=== PATIENT | male | born 1945 | race Caucasian/White ===

== ENCOUNTER 2018-10-23 11:32 | Day surgery (SDC) | payer MEDICARE ==
[~2018-10-23] VITALS: Ht 180.3 cm; Wt 89.5 kg
[~2018-10-23 11:32] MED LIST: AMLO5 PO; ATOR40TA PO; ELIQUIS5 MG PO; FINA5 PO; LOSA25 PO; METO50 PO; Omeprazole20 M1 PO; PARO20 PO; Zantac150 MG PO
== END 2018-10-23 14:05 | disposition home or self-care (01) ==
LOC: ORSCSDS 11:32
PROVIDERS: Surgery
PROC: 0YU50JZ Supplement Right Inguinal Region with Synthetic Substitute, Open Approach (ICD-10-PCS; principal; 2018-10-23 13:00)
DX: K40.90 Unilateral inguinal hernia, without obstruction or gangrene, not specified as recurrent (principal); I10 Essential (primary) hypertension; I48.0 Paroxysmal atrial fibrillation; Z79.01 Long term (current) use of anticoagulants; E78.00 Pure hypercholesterolemia, unspecified; F32.9 Major depressive disorder, single episode, unspecified; Z79.899 Other long term (current) drug therapy
CPT/HCPCS: 88305; J2704; J7120

== ENCOUNTER 2018-10-28 06:54 | Day surgery (SDC) | payer MEDICARE ==
[~2018-10-28] VITALS: Ht 180.3 cm; Wt 90.8 kg
--- NOTE | 2018-10-28 08:53 | NUR ---
Ambulatory in Day Surgery History, Chart, Medications and Allergies reviewed before start of procedure. Patient confirms NPO status and agrees with scheduled surgery. Pre-Op teaching done. Pt verbalizes understanding. Patient States Post-Procedure ride home has been arranged.
--- NOTE | 2018-10-28 10:22 | NUR ---
DRESSING TO R GROIN CDI. PT SITTING UP IN BED EATING JELLO. AT BEDSIDE. PROVIDED PAIN MEDS. WARM BLANKETS PROVIDED. WENDY WATER WITH MEDS.
--- NOTE | 2018-10-28 11:04 | NUR ---
Patient up to Ambulate independently. Gait steady. Patient States Post-Procedure ride home has been arranged. Discharged via wheelchair to private car for ride home. ALL BELONGIGNS RETURNED TO PATIENT.
== END 2018-10-28 23:19 | disposition home or self-care (01) ==
LOC: ORSCMMR 06:54 → ORD 08:15 → ORSCMMR 08:15
PROVIDERS: Surgery
PROC: 0YU50JZ Supplement Right Inguinal Region with Synthetic Substitute, Open Approach (ICD-10-PCS; principal; 2018-10-28 08:15)
DX: K40.90 Unilateral inguinal hernia, without obstruction or gangrene, not specified as recurrent (principal); I10 Essential (primary) hypertension; I48.0 Paroxysmal atrial fibrillation; Z79.01 Long term (current) use of anticoagulants; E78.00 Pure hypercholesterolemia, unspecified; F32.9 Major depressive disorder, single episode, unspecified; Z79.899 Other long term (current) drug therapy
CPT/HCPCS: C1781; J0690; J1100; J1885; J2250; J2405; J2704; J3010; J7120

== ENCOUNTER 2020-03-15 11:00 | Day surgery (SDC) | payer MEDICARE ==
[~2020-03-15] VITALS: Ht 180.3 cm; Wt 91.0 kg
--- NOTE | 2020-03-15 15:20 | NUR ---
History, Chart, Medications and Allergies reviewed before start of procedure.Patient confirms NPO status and agrees with scheduled surgery. Surgical site prepped with 2% Chlorhexidine cloth wipe. Patient reports completing Chlorhexadine shower X2 prior to admission to hospital.NOSIN NASAL SWAB DONE.
--- NOTE | 2020-03-15 19:30 | NUR ---
SHIFT SUMMARY POD0 FOR L TKA WITH DR. ROCA. AOX4. PT HAD A SPINAL, ARRIVED WITH NUMBNESS ON BILATERAL LOW EXTREMITIES. UNABLE TO WIGGLE TOES. PT IS ON RA, SPO2 97%. VSS. PT WAS HYPOTENSIVE IN PACU PER LINNEA. HE HAD A 500 BOLUS. BLADDER SCANNED WITH 3ML IN PACU. MAY NEED TO BLADDER SCAN PATIENT TONIGHT TO MONITOR RETENTION. HX BPH AND SLEEP APNEA. PT STS HE CAN SLEEP W/O CPAP WITH NO PROBLEM. PT TOLERATING PO INTAKE DENIES NAUSEA AND VOMITING.RADIAL AND PEDAL PULSES ARE STRONG AND PALPABLE. UPON ASSESSMENT THE POLAR PACK WAS LEAKING WATER. LLE WAS SOAKED. MIKEY BALDWIN CHANGED LEFT KNEE DRESSING. PT DENIES PAIN, WILL CONTINUE TO MANAGE PAIN WITH MEDS ORDERED BY MD. MOORE OF AFIB. BUT NO PROBLEMS DURING SURGERY PER LINNEA FROM PACU. HR AT 112. TXA WERE ADMINSTERED BY MIKEY BALDWIN.
--- NOTE | 2020-03-15 19:42 | NUR ---
BAY CHANGED TO START TOMORROW MORNING PER MACARIO LOMBARDI.
[2020-03-16 04:30] LABS: BASOPHILS ABSOLUTE AUTO 0.02 K/mm3 (0.00-0.23); BASOPHILS PERCENT AUTO 0 % (0-2); EOSINOPHILS ABSOLUTE AUTO 0.17 K/mm3 (0.00-0.68); EOSINOPHILS PERCENT AUTO 2 % (0-6); Hematocrit 38.1 % (37.0-53.0); Hemoglobin 12.4 g/dL (13.5-17.5); IMMATURE GRAN ABSOLUTE AUTO 0.02 K/mm3 (0.00-0.10); IMMATURE GRAN PERCENT AUTO 0 % (0-1); LYMPHOCYTES ABSOLUTE AUTO 1.37 K/mm3 (0.84-5.20); LYMPHOCYTES PERCENT AUTO 18 % (21-46); MONOCYTES PERCENT AUTO 11 % (4-13); Mean Corpuscular HGB 29.8 pg (26.0-34.0); Mean Corpuscular HGB Conc 32.5 g/dL (31.5-36.5); Mean Corpuscular Volume 92 fL (80-100); NEUTROPHILS ABSOLUTE AUTO 5.23 K/mm3 (1.96-9.15); NEUTROPHILS PERCENT AUTO 69 % (41-73); Platelet Count 120 K/mm3 (150-400); RDW Coefficient Variation 12.3 % (11.7-14.2); RDW Standard Deviation 41.7 fL (35.1-46.3); Red Blood Cell Count 4.16 M/mm3 (4.30-5.90); White Blood Cell Count 7.61 K/mm3 (4.00-11.30)
[2020-03-16 04:43] LABS: Anion Gap 5 mmol/L (6-16); Blood Urea Nitrogen 19 mg/dL (8-24); Bun/Creatinine Ratio 20.7 (12.0-20.0); CO2, Blood 29 mmol/L (21-32); Calcium, Blood 7.9 mg/dL (8.5-10.1); Chloride, Blood 109 mmol/L (98-108); Creatinine, Blood 0.92 mg/dL (0.60-1.20); Glomerular Filtration Rate >60 (60-); Glucose, Blood 88 mg/dL (70-99); Potassium, Blood 3.9 mmol/L (3.5-5.5); Sodium, Blood 143 mmol/L (136-145)
--- NOTE | 2020-03-16 05:54 | NUR ---
SHIFT SUMMARY: PT POD#1 FOR LEFT TKA. VICKIE WRAP AND AQUACEL C/D/I WITH POLAR PACK IN PLACE. PAIN BEING MANAGED WITH SCHEDULED TORADOL AND TYLENOL. PT MEDICATED WITH 5MG OXY ONCE. PT RATING PAIN 1/10. AMBULATING HALLWAY AND TO THE BATHROOM. UNSTEADY AT TIMES. PT ONLY ABLE TO VOID TWICE. TOTAL URINE OUTPUT OF 300CC. URINE DARK YELLOW. FLUIDS INFUSING PER EMAR. PT WENDY PO. DENIES N/V. PLAN FOR PHYSICAL THERAPY AND POSSIBLE DISCHARGE TODAY.
[2020-03-16] MEDS ORDERED: Percocet 5-3251 EACH PO (10:03)
--- NOTE | 2020-03-16 11:40 | NUR ---
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 DC INSTRUCTIONS PROVIDED. PT REP UNDERSTANDING THOSE INSTRUCTIONS INCLUDING FU WITH SURGEON, OK TO SHOWER, NO TUB/JACUZZI, SHORT FREQUENT AMBULATION W/FWW, PHYSICAL THERAPY W/HOME EXERCISES RECOMMENDED, PAIN MANAGEMENT DISCUSSION. IV DC'D.
== END 2020-03-16 11:12 | disposition home or self-care (01) ==
LOC: ORSCMMR 11:00 → ORD 12:15 → SURS 18:06 → ORSCMMR 03-16 11:12
PROVIDERS: Orthopaedic Surgery
PROC: 0SRD0JA Replacement of Left Knee Joint with Synthetic Substitute, Uncemented, Open Approach (ICD-10-PCS; principal; 2020-03-15 15:15)
DX: M17.12 Unilateral primary osteoarthritis, left knee (principal); I10 Essential (primary) hypertension; I48.91 Unspecified atrial fibrillation; Z79.01 Long term (current) use of anticoagulants; G47.33 Obstructive sleep apnea (adult) (pediatric); Z79.899 Other long term (current) drug therapy
CPT/HCPCS: 36415; 73560-LT; 80048; 85025; 88300; 97110; 97116; 97162; A9270; A9270-GY; C1776; J0171; J0690; J0735; J1885; J2250; J2370; J2704; J2795; J3010; J7120

== ENCOUNTER 2021-03-21 06:47 | Day surgery (SDC) | payer MEDICARE, BC ==
[~2021-03-21] VITALS: Ht 175.3 cm; Wt 95.9 kg
[~2021-03-21 06:47] MED LIST changes: +Percocet 5-3251 EACH PO
--- NOTE | 2021-03-21 12:17 | NUR ---
Patient up to Ambulate independently. Gait steady. Discharge instructions reviewed with patient. Patient verbalizes understanding. Copy given to patient to take home. Discharged via wheelchair to private car for ride home.
== END 2021-03-21 12:16 | disposition home or self-care (01) ==
LOC: ORSCMMR 06:47 → ORD 08:30 → ORSCMMR 08:30
PROVIDERS: Surgery
PROC: 0YU60JZ Supplement Left Inguinal Region with Synthetic Substitute, Open Approach (ICD-10-PCS; principal; 2021-03-21 08:30)
DX: K40.90 Unilateral inguinal hernia, without obstruction or gangrene, not specified as recurrent (principal); I48.91 Unspecified atrial fibrillation; Z79.01 Long term (current) use of anticoagulants; I10 Essential (primary) hypertension; G47.33 Obstructive sleep apnea (adult) (pediatric); F41.8 Other specified anxiety disorders; Z79.899 Other long term (current) drug therapy
CPT/HCPCS: A9270; C1781; J0690; J1100; J1885; J2370; J2405; J2704; J3010; J7120

== ENCOUNTER 2021-04-01 13:55 | Observation (INO) | payer MEDICARE, BC ==
[~2021-04-01] VITALS: Ht 177.8 cm; Wt 98.1 kg
[2021-04-01 14:41] LABS: BASOPHILS ABSOLUTE AUTO 0.02 K/mm3 (0.00-0.23); BASOPHILS PERCENT AUTO 0 % (0-2); EOSINOPHILS ABSOLUTE AUTO 0.21 K/mm3 (0.00-0.68); EOSINOPHILS PERCENT AUTO 3 % (0-6); Hematocrit 45.5 % (37.0-53.0); Hemoglobin 15.1 g/dL (13.5-17.5); IMMATURE GRAN ABSOLUTE AUTO 0.03 K/mm3 (0.00-0.10); IMMATURE GRAN PERCENT AUTO 0 % (0-1); LYMPHOCYTES ABSOLUTE AUTO 1.39 K/mm3 (0.84-5.20); LYMPHOCYTES PERCENT AUTO 19 % (21-46); MONOCYTES ABSOLUTE AUTO 0.68 K/mm3 (0.16-1.47); MONOCYTES PERCENT AUTO 9 % (4-13); Mean Corpuscular HGB 29.7 pg (26.0-34.0); Mean Corpuscular HGB Conc 33.2 g/dL (31.5-36.5); Mean Corpuscular Volume 90 fL (80-100); Mean Platelet Volume 9.7 fL (9.1-12.4); NEUTROPHILS ABSOLUTE AUTO 5.02 K/mm3 (1.96-9.15); NEUTROPHILS PERCENT AUTO 68 % (41-73); Platelet Count 179 K/mm3 (150-400); RDW Coefficient Variation 12.8 % (11.7-14.2); RDW Standard Deviation 42.1 fL (35.1-46.3); Red Blood Cell Count 5.08 M/mm3 (4.30-5.90); White Blood Cell Count 7.35 K/mm3 (4.00-11.30)
[2021-04-01 15:36] LABS: Alanine Aminotransfer (ALT/SGP 19 U/L (12-78); Albumin, Blood 3.3 g/dL (3.4-5.0); Albumin/Globulin Ratio 0.8 (0.8-1.8); Alk Phos 132 U/L (50-136); Anion Gap 4 mmol/L (6-16); Aspartate Aminotrans (AST/SGOT 17 U/L (12-37); Bilirubin, Total 0.9 mg/dL (0.1-1.0); Blood Urea Nitrogen 11 mg/dL (8-24); Bun/Creatinine Ratio 12.6 (12.0-20.0); CO2, Blood 29 mmol/L (21-32); Calcium, Blood 8.6 mg/dL (8.5-10.1); Chloride, Blood 109 mmol/L (98-108); Creatinine, Blood 0.87 mg/dL (0.60-1.20); Globulin, Blood 3.9 g/dL (2.2-4.0); Glomerular Filtration Rate >60 (60-); Glucose, Blood 98 mg/dL (70-99); Potassium, Blood 3.9 mmol/L (3.5-5.5); Sodium, Blood 142 mmol/L (136-145); Total Protein, Blood 7.2 g/dL (6.4-8.2)
[2021-04-01 19:17] LABS: SARS-Cov-2 (COVID-19) PCR, MMC NEGATIVE (NEGATIVE)
[2021-04-01 20:46] LABS: Hematocrit 39.1 % (37.0-53.0); Hemoglobin 12.7 g/dL (13.5-17.5)
[2021-04-02 01:13] LABS: Hematocrit 36.8 % (37.0-53.0); Hemoglobin 11.7 g/dL (13.5-17.5); Mean Corpuscular HGB 29.3 pg (26.0-34.0); Mean Corpuscular HGB Conc 31.8 g/dL (31.5-36.5); Mean Corpuscular Volume 92 fL (80-100); Mean Platelet Volume 9.8 fL (9.1-12.4); Platelet Count 135 K/mm3 (150-400); RDW Coefficient Variation 12.9 % (11.7-14.2); RDW Standard Deviation 43.5 fL (35.1-46.3); Red Blood Cell Count 3.99 M/mm3 (4.30-5.90); White Blood Cell Count 8.23 K/mm3 (4.00-11.30)
--- NOTE | 2021-04-02 08:28 | NUR ---
SUMMARY PT VSS AND LABS STABILIZING. PT RECEIVED NORCO X1 DURING NOC AND SUBLIMAZE THIS AM.DR ORNELAS THIS AM REVIEWED LAABS AND SAW PT.ORDERS RECEIVED FOR REG DIET
--- NOTE | 2021-04-02 14:09 | NUR ---
SHIFT SUMMARY: ALERT AND ORIENTED. PLEASANT AFFECT WITH VERY MINIMAL ANXIETY. REPORTS THAT PAIN IS UNDER CONTROL WITH i NORCO PO Q [address]AP IN PL[address] FOR SUPPORT AND ICE BAG FOR GROIN AREA PT. REQUEST. APPETITE IS GOOD AND PT. VOIDING WITHOUT DIFFICULTY. UP TO AMBULATE IN DONG WITH CONTACT GUARD/STAND-BY ASSIST. PATIENT TOLERATE WELL BUT "FEELS A LITTLE WEAK". NO INCREASED SWELLING AT LEFT GROIN SITE AREA. CALL LIGHT IN REACH AND PT. ENCOURAGED TO CALL FOR ANY NEEDS, CONCERNS, COMPLAINTS.
--- NOTE | 2021-04-02 17:20 | NUR ---
AT 1600 ASSESSED PT. PAIN AND PATIENT STATES "ITS ACTUALLY A ZERO RIGHT NOW". AT THIS TIME IS SLEEPING WITH NO S/S DISTRESS, CALL LIGHT IN REACH.
--- NOTE | 2021-04-03 04:07 | NUR ---
PT C/O INCREASED PAIN.FREIGHT CLERK MEDICATED PT WITH PO NORCO.I FOLLOWED UP WITH PT WHO STATED HE CALLED FOR BRP AND DID NOT WAIT FOR ASSIST.REMOVED HIS PAS AND GOT SELF OOB FOR BRP.STATES SUDDEN INCREASE OF PAIN.PT HAS INCREASE IN FIRMNESS TO GROIN AND PUBIC AREA SPREADING ACROSS L TO R SIMILAR TO APPEARANCE LAST NIGHT.ICE CONTINUOUS TO AREA.0428 PT MED WITH DILAUDID FOR PAIN PER HIS REQUEST.0515 PTS PAIN INITIALY DROPPED TO 7 AFTER DILAUDID, HOWEVER, HE NOW STATES PAIN HAS INCLINED TO LEVEL 10.MESSAGE TO DR CAMARA FOR RETURNED CALL.
[2021-04-03 04:11] LABS: Hematocrit 37.2 % (37.0-53.0); Mean Corpuscular HGB 29.6 pg (26.0-34.0); Mean Corpuscular HGB Conc 32.3 g/dL (31.5-36.5); Mean Corpuscular Volume 92 fL (80-100); Mean Platelet Volume 9.9 fL (9.1-12.4); Platelet Count 158 K/mm3 (150-400); RDW Standard Deviation 43.4 fL (35.1-46.3); Red Blood Cell Count 4.05 M/mm3 (4.30-5.90); White Blood Cell Count 9.83 K/mm3 (4.00-11.30)
--- NOTE | 2021-04-03 05:48 | NUR ---
NO RETURN CALL AT THIS TIME. PT CONT TO C/O INCREASED PAIN. MESSAGE LEFT WITH ANS SERVICE FOR RETURN CALL.
--- NOTE | 2021-04-03 07:05 | NUR ---
SUMMARY DISCUSSED WITH PT PHONE CALL WITH DOCTOR AND GAVE ZOFRAN PLUS ADDITIONAL DOSE OF DILAUDID. PT REPORTS ZERO IMPROVEMENT OF PAIN.
--- NOTE | 2021-04-03 07:27 | NUR ---
Pt. sleeping. No s/s distress or pain. Respirations even and unlabored. Call light in reach.
[2021-04-03 14:34] LABS: BASOPHILS ABSOLUTE AUTO 0.02 K/mm3 (0.00-0.23); BASOPHILS PERCENT AUTO 0 % (0-2); EOSINOPHILS ABSOLUTE AUTO 0.14 K/mm3 (0.00-0.68); EOSINOPHILS PERCENT AUTO 2 % (0-6); Hemoglobin 10.1 g/dL (13.5-17.5); IMMATURE GRAN ABSOLUTE AUTO 0.04 K/mm3 (0.00-0.10); IMMATURE GRAN PERCENT AUTO 0 % (0-1); LYMPHOCYTES ABSOLUTE AUTO 1.34 K/mm3 (0.84-5.20); LYMPHOCYTES PERCENT AUTO 15 % (21-46); MONOCYTES ABSOLUTE AUTO 0.74 K/mm3 (0.16-1.47); MONOCYTES PERCENT AUTO 8 % (4-13); Mean Corpuscular HGB 30.1 pg (26.0-34.0); Mean Corpuscular HGB Conc 32.6 g/dL (31.5-36.5); Mean Corpuscular Volume 92 fL (80-100); Mean Platelet Volume 9.7 fL (9.1-12.4); NEUTROPHILS ABSOLUTE AUTO 6.91 K/mm3 (1.96-9.15); NEUTROPHILS PERCENT AUTO 75 % (41-73); Platelet Count 150 K/mm3 (150-400); RDW Coefficient Variation 12.9 % (11.7-14.2); RDW Standard Deviation 43.4 fL (35.1-46.3); Red Blood Cell Count 3.36 M/mm3 (4.30-5.90); White Blood Cell Count 9.19 K/mm3 (4.00-11.30)
--- NOTE | 2021-04-03 18:16 | NUR ---
SHIFT SUMMARY; PT. ALERT, ORIENTED, PLEASANT AFFECT. DR. CAMARA AND DR. BRIGGS IN TO SEE PT. TODAY. PATIENT GROIN PAIN RELIEVED WITH ONE NORCO Q 4 HOUR TODAY, VERBAIZE RELIEF. AMBULATE TO BR WITHOUT DIFFICULTY, VOIDING WELL. JOCK STRAP IN PLACE, NOTED SWELLING IN SCROTUM.
[2021-04-03 19:18] LABS: Hematocrit 31.4 % (37.0-53.0); Hemoglobin 10.1 g/dL (13.5-17.5)
--- NOTE | 2021-04-04 04:41 | NUR ---
PT IS IN BED AT THIS TIME WHERE HE REMAINS MUCH OF THE NIGHT AND IS RESTING COMFORTABLY. HE IS ALERT AND ORIENTED, CONDITION IS STABLE. HE IS ASSISTED WITH HIS CARE AND ADLS, ASSISTED WITH BATHROM AND TOILETING NEEDS. HE IS MEDICATED INDICATED, CALL BULLOCK PLACED NEAR HIM AND ENCOURAGED TO CALL FOR HELP WHEN ASSISTANCE IS NEEDED HE IS MONITORED.
--- NOTE | 2021-04-04 16:34 | NUR ---
DR. BRIGGS IN TO SEE PT.-DC ORDERS WRITTEN FOR 04/05.
--- NOTE | 2021-04-04 16:57 | NUR ---
SHIFT SUMMARY: PATIENT UP TODAY AND AMBULATE IN DONG, TOLERATE WELL. DID NOTICE PRESSURE AT END OF WALK. NEW JOCK STRAP SUPPLIED. DR. BRIGGS IN TO SEE PATIENT THIS AFTERNOON AND WROTE ORDERS FOR DC 04/05.NORCO I GIVEN FOR MILD TO MOD PAIN LEFT GROIN AFTER WALK.
--- NOTE | 2021-04-05 06:20 | NUR ---
VSS. C/O PAIN TO LOWER ABD. ABD TENDER/RIGID W/ HEALING INCISION TO L LOWER ABD QUADRANT. PAIN MEDS GIVEN-SEE EMAR. NO ISSUES THROUGHOUT SHIFT.
[2021-04-05] MEDS ORDERED: HYDR1TAB94 PO (09:38)
--- NOTE | 2021-04-05 12:44 | NUR ---
DISHCARGE PATIENT DISCHARGED IN STABLE CONDITION. PERIPHERAL IV REMOVED, DISCHARGE INSTRUCTIONS GIVEN TO PATIENT, PATIENT VERBALIZED UNDERSTANDING OF INSTRUCTIONS. PATIENT TAKEN TO FRONT LOBBY VIA WHEELCHAIR
== END 2021-04-05 11:30 | disposition home or self-care (01) ==
LOC: ER 13:55 → MEDS 13:56 → SURS 19:54
PROVIDERS: Physician Assistant; ADMIT Surgery
DX: S30.22XA Contusion of scrotum and testes, initial encounter (principal); X58.XXXA Exposure to other specified factors, initial encounter; I10 Essential (primary) hypertension; E78.5 Hyperlipidemia, unspecified; I48.91 Unspecified atrial fibrillation; G47.33 Obstructive sleep apnea (adult) (pediatric); Z79.01 Long term (current) use of anticoagulants; Z79.899 Other long term (current) drug therapy; Z20.822 Contact with and (suspected) exposure to COVID-19
CPT/HCPCS: 36415; 74177; 80053; 83605; 83690; 85014; 85018; 85025; 85027; 86850; 86900; 86901; 93005; 93010; 96374; 96375; 96376; 99285-25; A9270; G0378; J1170; J1885; J2405; J7030; J7120; Q9967; U0004